=== PATIENT | female | born 1985 | race Caucasian/White ===

== ENCOUNTER 2017-02-05 18:43 | Emergency (ER) | payer OTHER ==
[2017-02-05 18:59] VITALS: BP 112/71
[2017-02-05] MEDS ORDERED: HYDROmorphone 1 MG/ML Syringe IVPUSH ONE (19:36)
[2017-02-05] MEDS ORDERED: Ondansetron 4 MG/2 ML SDV IVPUSH ONE (19:36)
[2017-02-05] MEDS ORDERED: Sodium Chloride 0.9% 1,000 ML IV ONE (19:36)
[2017-02-05] MEDS ORDERED: Sodium Chloride 0.9% 10 ML Syringe FLUSH PRN (19:36)
--- NOTE | 2017-02-05 19:58 | EDM.PDOC ---
ED HPI GENERAL MEDICAL PROBLEM - General Chief Complaint: Upper Extremity Injury/Pain Stated Complaint: VOMITING Time Seen by Provider: 02/05/17 19:20 Source of Information: Reports: Patient History Limitations: Reports: No Limitations - History of Present Illness INITIAL COMMENTS - FREE TEXT/NARRATIVE: 31 year old female presents for evaluation and treatment of nausea and right shoulder pain. Patient had right shoulder surgery in [place] yesterday. Reports the original injury occurred in June at work. Surgery occurred in [place], bone and joint by Dr. Arguello. States she had her rotator cuff tightened but is not completely sure what they did. Currently complains of nausea, vomiting and a headache. Has only taken sips of water. Has pain medication and nausea medication but was unable to keep this down. No drainage from the surgical sites. No fevers. Right Shoulder Pain Score (Numeric/FACES): 10 - Related Data Allergies Allergy/AdvReac Type Severity Reaction Status Date / Time aluminum Allergy Rash Verified 06/29/16 18:23 latex Allergy Rash Verified 06/29/16 18:23 Home Meds: Home Meds Hydrocodone/Acetaminophen [Hydrocodon-Acetaminophn 10-325] 10 - 325 mg PO Q6H PRN 02/05/17 [History] Ondansetron HCl [Zofran] 8 mg PO Q8H PRN 02/05/17 [History] oxyCODONE 5 mg PO Q6H PRN 02/05/17 [History] Past Medical History CLIP ON [employer]ER History: Reports: - Past Surgical History HEENT Surgical History: Reports: Tonsillectomy Female Surgical History: Reports: Tubal Ligation Social & Family History - Tobacco Use Smoking Status *Q: Never Smoker Second Hand Smoke Exposure: No - Caffeine Use Caffeine Use: Reports: Coffee, Tea - Recreational Drug Use Recreational Drug Use: No Review of Systems - Review of Systems Review Of Systems: See Below Constitutional: Denies: Fever GI/Abdominal: Reports: Nausea, Vomiting (x12 today) Musculoskeletal: Reports: Shoulder Pain (right) Skin: Reports: Wound (healing surgical wounds; no drainage) Neurological: Reports: Headache ED EXAM, GENERAL - Physical Exam Exam: See Below Exam Limited By: No Limitations General Appearance: Alert, WD/WN, Mild Distress, Other (irritatable) Respiratory/Chest: No Respiratory Distress, Lungs Clear, Normal Breath Sounds Cardiovascular: Normal Peripheral Pulses, Regular Rate, Rhythm, No Murmur Neurological: Alert, Oriented, Normal Cognition Psychiatric: Normal Affect, Normal Mood Skin Exam: Warm, Dry, Normal Color, Wound/Incision (surgical wounds to the right shoulder currently steri stripped; minimal erythema, closed, no drainage, minimal swelling) Course - Vital Signs Last Recorded V/S: Last Vital Signs Temp 36.8 C 02/05/17 18:55 Pulse 85 02/05/17 18:55 Resp 20 02/05/17 18:55 BP 112/71 02/05/17 18:55 Pulse Ox 97 02/05/17 18:55 - Orders/Labs/Meds Meds: Medications Discontinued Medications Generic Name Dose Route Start Last Admin Trade Name Freq PRN Reason Stop Dose Admin Hydromorphone HCl 1 mg 02/05/17 19:36 02/05/17 19:59 Dilaudid IVPUSH 02/05/17 19:37 Not Given ONETIME ONE Sodium Chloride 1,000 mls @ 999 mls/hr 02/05/17 19:36 02/05/17 19:59 Normal Saline IV 02/05/17 20:36 Not Given ONETIME ONE Ondansetron HCl 4 mg 02/05/17 19:36 02/05/17 20:00 Zofran IVPUSH 02/05/17 19:37 Not Given ONETIME ONE Sodium Chloride 10 ml 02/05/17 19:36 Saline Flush FLUSH ASDIRECTED PRN Keep Vein Open - Re-Assessments/Exams Free Text/Narrative Re-Assessment/Exam: 02/05/17 19:56 nursing staff attempted to establish an IV but after 2 attempts were unsuccessful . plan was to give IV fluids, dilaudid and nausea medication. This greatly upset the patient. She was offered IM medication but she declines and wants to go home. She has zofran and pain medication at home. Discharge instructions as documented. Departure - Departure Time of Disposition: 19:56 Disposition: Home, Self-Care 01 Condition: Fair Clinical Impression: Nausea, Shoulder pain, right - Discharge Information Instructions: Shoulder Pain, Nausea, Adult, [id number] Referrals: Drew Arguello MD [Primary Care Provider] - Forms: ED Department Discharge Additional Instructions: Continue with current medication and current plan of care. Please return to the ER should your symptoms change or worsen.
== END 2017-02-05 20:05 | disposition home or self-care (01) ==
LOC: JD.ED 18:43 → SUPCPDRO 18:43 → JD.ED 20:05
DX: M25.511 Pain in right shoulder (principal); R11.2 Nausea with vomiting, unspecified; Z98.890 Other specified postprocedural states; Z98.51 Tubal ligation status; Z91.040 Latex allergy status; Z91.048 Other nonmedicinal substance allergy status
CPT/HCPCS: 99283; 99284